=== PATIENT | female | born 1950 | race Caucasian/White ===

== ENCOUNTER → 2017-06-28 | Emergency (ER) | payer OTHER ==
[~2017-06-28] VITALS: Ht 134.6 cm; Wt 86.2 kg
== END | disposition home or self-care (01) ==
LOC: ER 11:55
DX: S80.01XA Contusion of right knee, initial encounter (principal); W18.09XA Striking against other object with subsequent fall, initial encounter; Y93.89 Activity, other specified; Y92.018 Other place in single-family (private) house as the place of occurrence of the external cause; Y99.8 Other external cause status